=== PATIENT | male | born 1950 | race African-American/Black ===

== ENCOUNTER 2016-08-17 11:53 | Inpatient (IN) | payer MEDICARE ==
--- NOTE | ~2016-08-17 | DS ---
Unit #: [id number] #: [id number] Patient: SHERICE PLUNKETT [id number] [facility] [address] [place] [address] [id number] MR#: [id number] NAME: SHERICE PLUNKETT ROOM: [facility] Age: 66 Sex: M Admission Date: 08/17/2016 : 1950 Discharge Date: 08/21/2016 Attending Physician: Kassidy Schulte M.D. Primary Care Physician: Michelle Patients Family DISCHARGE SUMMARY IDENTIFYING DATA Mr. Plunkett is a 66-year-old male, who is a resident of [place], [place], and was self-referred to the hospital. DISCHARGE DIAGNOSES Psychiatric: Opioid dependence, moderate, in acute withdrawals and opioid-induced mood disorder. Medical: Hypertension. Stressors: Moderate psychosocial stressors. HISTORY OF PRESENT ILLNESS Please see initial psychiatric evaluation for details. PAST PSYCHIATRIC HISTORY Please see initial psychiatric evaluation for details. PAST MEDICAL HISTORY Please see initial psychiatric evaluation for details. HOSPITAL COURSE The patient was [facility] and was oriented to the hospital environment. Routine p.r.n. medications were initiated and he was started back on his home medications and detox protocol was initiated and he was closely monitored. He was taking the medications regularly and was tolerating them fairly well and was able to show a decent and therapeutic response and was willing to continue treatment on an outpatient basis and as such, it was decided that he will be discharged home and will continue treatment on an outpatient basis. DISCHARGE MEDICATIONS Zestril 20 mg a day for hypertension and Tenormin 50 mg a day for hypertension. DISCHARGE CONDITION Stable. PROGNOSIS Fair. Dictated by... Kassidy Schulte M.D. Unit #: [id number] #: [id number] Patient: SHERICE PLUNKETT IAA/modl TD: 08/21/2016 15:12 JOB #: [id number] DISCHARGE SUMMARY X Kassidy Schulte MD X DISCHARGE SUMMARY
--- NOTE | ~2016-08-17 | PA ---
Unit #: [id number] #: [id number] Patient: SHERICE PLUNKETT [id number] [facility] [address] [place] [address] [id number] I MR#: [id number] NAME: SHERICE PLUNKETT ROOM: P180 Age: 66 Sex: M Admission Date: 08/17/2016 : 1950 Date of Assessment: 08/17/2016 Attending Physician: Kassidy Schulte M.D. Admitting Physician: Kassidy Schulte M.D. [facility] PSYCHIATRIC ASSESSMENT DATE OF SERVICE 08/17/2016. IDENTIFYING DATA Mr. Plunkett is a 66-year-old male, who is a resident of [place], [place], and was self-referred to the hospital on a voluntary basis. CHIEF COMPLAINT "I'm using heroin daily." HISTORY OF PRESENT ILLNESS Mr. Plunkett is a 66-year-old male with history of substance abuse, who presented to the hospital and stated that he is a daily heroin user and is currently using about 0.5 g a day and that he has been snorting the substance and he wants to maintain sobriety for himself and his and does report some depression, anxiety, and irritability, but denies any suicidal ideations, intent, or plan. SUBSTANCE ABUSE HISTORY The patient reports opioids, particularly heroin to be his drug of choice and has been using up to half a gram a day and denies any other drug abuse. PAST PSYCHIATRIC HISTORY The patient has had a history of [facility], and review of the medical records indicate that currently he is not active in any treatment program, is not seeing a psychiatrist, and is not taking any psychotropic medications. PAST MEDICAL HISTORY Hypertension. ALLERGIES Penicillin, sulfamethoxazole, and trimethoprim. PERSONAL AND SOCIAL HISTORY A 66-year-old male, who reports that he is and lives at home with his and has fairly decent social support system. MENTAL STATUS EXAMINATION An elderly male, who was casually dressed fair personal hygiene, appears to be in no acute distress or discomfort. He was awake and alert on interaction with intact orientation to time, place, and Unit #: [id number] #: [id number] Patient: SHERICE PLUNKETT person. His mood was anxious and depressed with a congruent affect. His speech was slow and restricted in content. His thought processes were disorganized with some looseness of associations and paranoid ideations. His insight and judgment remain significantly impaired. DIAGNOSTIC IMPRESSION Psychiatric: Opioid dependence, moderate, in acute withdrawals and opioid induced mood disorder. Medical: None. Stressors: Moderate psychosocial stressors. TREATMENT PLAN 1. The patient has presented with a history of substance abuse and mood disorder and has been decompensating and will need inpatient hospitalization for safety and stabilization. We will start him back on his home medications and we will adjust the medications and monitor response. 2. Supportive therapy was provided to the patient. 3. Safe, structured, and nourishing environment will be provided. ESTIMATED LENGTH OF STAY 5 to 7 days. ABILITY TO HELP SELF Limited. WILLINGNESS TO HELP SELF The patient appears to be willing to help self. STRENGTHS 1. Communicative. 2. Cooperative. PROBLEMS 1. Chronic dysphoric symptoms. 2. Poor social support system. DISCHARGE CRITERIA This will be contingent upon the patient's ability to go through detox without having any significant withdrawal symptoms as well as his ability to stay safe to himself, particularly after discharge from the hospital. Dictated by... Antoine Cline/ed TD: 08/18/2016 16:52 JOB #: [id number] Unit #: [id number] #: [id number] Patient: SHERICE PLUNKETT PSYCHIATRIC ASSESSMENT X Kassidy Schulte MD X PSYCHIATRIC ASSESSMENT
--- NOTE | ~2016-08-17 | PN ---
Unit #: [id number] #: [id number] Patient: SHERICE PLUNKETT [id number] [facility] [address] [place] [address] [id number] I MR#: [id number] NAME: SHERICE PLUNKETT ROOM: [facility] Age: 66 Sex: M Admission Date: 08/17/2016 : 1950 Attending Physician: Kassidy Schulte M.D. Admitting Physician: Kassidy Schulte M.D. Primary Care Physician: [facility] PROGRESS NOTES DATE 08/20/2016 DISCUSSION Mr. Plunkett is a 66-year-old male who was seen today and chart was reviewed and case was discussed with the staff. He has been anxious, withdrawn and rather seclusive to himself. Meanwhile, he has been compliant with the treatment recommendations and has been taking medications and tolerating them fairly well with no reported side effects. MENTAL STATUS EXAMINATION An elderly male who was casually dressed with fair personal hygiene and appears to be in no acute distress or discomfort. He was awake and alert with impaired attention and concentration. His mood was anxious with congruent affect. He denies any suicidal or homicidal ideation. His insight and judgment remains significantly impaired. TREATMENT PLAN 1. Will continue on his current medications and treatment protocol. Will monitor his response to the medications and make further adjustments as needed. 2. Will continue to follow up. Dictated by... Kassidy Schulte M.D. IAA/melissa TD: 08/21/2016 10:50 JOB #: [id number] Unit #: [id number] #: [id number] Patient: SHERICE PLUNKETT [facility] PROGRESS NOTES X Kassidy Schulte MD X PROGRESS NOTE
--- NOTE | ~2016-08-17 | HP ---
Unit #: [id number] #: [id number] Patient: SHERICE SHER [id number] [place] [address] [id number] I MR#: [id number] NAME: SHERICE SHER ROOM: P180 Age: 66 Sex: M Admission Date: 08/17/2016 : 1950 Attending Physician: Kassidy Schulte M.D. Admitting Physician: Kassidy Schulte M.D. Primary Care Physician: Morenita Iniguez Family HISTORY AND PHYSICAL HISTORY OF PRESENT ILLNESS Sherice is a 66 year old admitted to [facility] because of his continued illicit substance abuse which include IV heroin. He has had other admissions to this facility for the same. PAST MEDICAL HISTORY 1. Long history of opioid abuse to include IV heroin 2. High blood pressure 3. Positive HIV, diagnosed 1998 PAST SURGICAL HISTORY Nothing significant ALLERGIES Sulfa, penicillin SOCIAL HISTORY Smokes one pack per day. Denies alcohol. Admits to a long history of opioid abuse to include IV heroin. FAMILY HISTORY Medically noncontributory. REVIEW OF SYSTEMS CONSTITUTIONAL: No fever or chills. HEENT: Denies any sore throat, ear pain or runny nose. CARDIOVASCULAR: Denies chest pain, irregular heart rhythm or palpitations. CHEST: Denies shortness of breath or cough. No hemoptysis. GASTROINTESTINAL: Denies nausea, vomiting, diarrhea or chronic constipation. ENDOCRINE: Denies history of increased thirst or urination. No recent significant weight loss or gain. GENITOURINARY: Denies dysuria, frequency, or hematuria. SKIN: Denies any rashes. HEMATOLOGIC: Denies history of increased bleeding or bruising. MUSCULOSKELETAL: Denies any hot, swollen joints. No generalized muscle pain. NEUROLOGIC: Denies problems with vision or speech. No frequent, severe headaches. No numbness, tingling or weakness in any extremities. Denies loss of bladder or bowel control. CURRENT MEDICATIONS Unit #: [id number] #: [id number] Patient: SHEIRCE SHER 1. Detox protocol 2. Cardura 2 mg daily 3. Tenormin 50 mg daily 4. Zestril 20 mg daily PHYSICAL EXAMINATION GENERAL: Alert, well-nourished, in no apparent distress. VITAL SIGNS: Blood pressure 138/88, heart rate 80, respirations 16, temperature 98.6. WEIGHT: 180 pounds. HEIGHT: 6'0". SKIN: Warm and dry without rash or lesion. HEENT: Normocephalic. TMs not viewed. Oral and nasal passages clear. Conjunctivae clear. Pupils equal, round and reactive to light and accommodation. Extraocular movements intact. NECK: Supple without lymphadenopathy or thyromegaly. HEART: Regular rate and rhythm without murmur. LUNGS: Clear. ABDOMEN: Soft, nontender. : Not done. EXTREMITIES: No evidence of cyanosis, clubbing or edema. Moves all extremities without focal deficit. NEUROLOGICAL: Grossly within normal limits. Cranial Nerves: II: Visual julien are intact. III, IV AND : Extraocular movements are intact. Pupils are equal, round and reactive to light. V: Facial sensation is grossly normal. VII: Facial movements and expression are normal. VIII: Auditory acuity grossly intact. IX, X: Uvula is midline. Phonation is normal. XI: Patient shrugs shoulders and turns head normally. XII: Tongue protrudes in the midline. Sensory and Motor Function: Sensory and motor sensation is grossly normal. Motor: moves all extremities well. Coordination: Gait is normal. Deep Tendon Reflexes: Intact. IMPRESSION Psychiatric admission RECOMMENDATIONS PSYCHIATRIC: Per psychiatrist. MEDICAL: I see no contraindications to participating in facility's activities. MEDICAL PROGNOSIS Good. MEDICAL CONDITION Stable. Dictated by... Moraima Mondragon P.A.-C. for Antoine Sweeney/brad Unit #: [id number] #: [id number] Patient: SHERICE SHER TD: 08/18/2016 02:17 JOB #: [id number] HISTORY AND PHYSICAL X Moraima Mondragon X HISTORY AND PHYSICAL
--- NOTE | ~2016-08-17 | PN ---
Unit #: [id number] #: [id number] Patient: SHERICE PLUNKETT [id number] [facility] [address] [place] [address] [id number] I MR#: [id number] NAME: SHERICE PLUNKETT ROOM: [facility] Age: 66 Sex: M Admission Date: 08/17/2016 : 1950 Attending Physician: Kassidy Schulte M.D. Admitting Physician: Kassidy Schulte M.D. Primary Care Physician: [facility] PROGRESS NOTES DATE August 18, 2016 DISCUSSION Mr. Plunkett is a 66-year-old male, with substance abuse and mood disorder, who was seen today and chart was reviewed and the case was discussed with the staff. He was seen to be anxious, withdrawn, and seclusive to himself but appears to be in distress and discomfort going through detox. Meanwhile, he has been cooperative with the treatment recommendations and he has been taking the medications and tolerating them fairly well with no reported side effects. MENTAL STATUS EXAMINATION An elderly male, who was casually dressed with fair personal hygiene and appears to be in no acute distress or discomfort. He was awake and alert with impaired attention and concentration. His mood is anxious with a congruent affect. He denies any suicidal or homicidal ideations. His insight and judgment remain slightly impaired. TREATMENT PLAN 1. We will continue him on his current treatment protocol, and will monitor his response to the medications, and make further adjustments as needed. 2. We will continue to followup. Dictated by... Antoine Cline/donna TD: 08/19/2016 10:29 JOB #: [id number] Unit #: [id number] #: [id number] Patient: SHERICE PLUNKETT PROGRESS NOTES X Kassidy Schulte MD PROGRESS NOTE
--- NOTE | ~2016-08-17 | PN ---
Unit #: [id number] #: [id number] Patient: SHERICE PLUNKETT [id number] [facility] [address] [place] [address] [id number] I MR#: [id number] NAME: SHERICE PLUNKETT ROOM: [facility] Age: 66 Sex: M Admission Date: 08/17/2016 : 1950 Attending Physician: Kassidy Schulte M.D. Admitting Physician: Kassidy Schulte M.D. Primary Care Physician: [facility] PROGRESS NOTES DATE 08/19/2016 DISCUSSION Mr. Plunkett is a 66-year-old male with substance abuse and mood disorder who was seen today and chart was reviewed and case was discussed with the staff. He has been anxious, restless and in some distress and discomfort as he is going through detox. Meanwhile, he has been compliant with the treatment recommendations and has been taking medications and tolerating them fairly well with no reported side effects. MENTAL STATUS EXAMINATION An elderly male who was casually dressed with fair personal hygiene and appears to be in no acute distress or discomfort. He was awake and alert with impaired attention and concentration. His mood was anxious with congruent affect. His speech is slow and restricted in content. His insight and judgement remains significantly impaired. TREATMENT PLAN 1. Will continue on his current medications and treatment protocol. Will monitor his response to the medications and make further adjustments as needed. 2. Will continue to follow up. Dictated by... Antoine Cline/tonny TD: 08/19/2016 23:19 JOB #: [id number] Unit #: [id number] #: [id number] Patient: SHERICE PLUNKETT PROGRESS NOTES X Kassdiy Schulte MD X PROGRESS NOTE
[2016-08-18 10:00] LABS: BASOPHIL% 0.6 % (0-2.5); EOSINOPHIL# 0.1 X10e3 (0-0.7); EOSINOPHIL% 1.1 % (0.0-7.0); HEMATOCRIT 43.3 % (38.0-50.0); LYMPHOCYTE# 2.7 X10e3 (1.0-3.5); LYMPHOCYTE% 56.3 % (17.0-45.0); MEAN CELL VOLUME 87.1 FL (83-96); MEAN CORPUSCULAR HEMOGLOBIN 28.2 PG (28-34); MEAN CORPUSCULAR HGB CONC 32.4 g/dL (30-36); MEAN PLATELET VOLUME 8.4 FL (6.5-11.5); MONOCYTE# 0.6 X10e3 (0-1.0); MONOCYTE% 11.7 % (3.0-12.0); NEUTROPHIL# 1.4 X10e3 (1.5-7.1); NEUTROPHIL% 30.3 % (40-75); PLATELET COUNT 200 X10e3 (140-420); RED BLOOD COUNT 4.97 X10e (3.90-5.60); RED CELL DISTRIBUTION WIDTH 13.5 % (11.0-15.5); WHITE BLOOD COUNT 4.7 X10e3 (4.0-10.5)
[2016-08-18 10:02] LABS: DIFF IND YES
[2016-08-18 10:03] LABS: URINE APPEARANCE CLEAR; URINE BILIRUBIN NEG (NEG); URINE BLOOD NEG (NEG); URINE COLOR YELLOW; URINE GLUCOSE NEG (NEG); URINE KETONE NEG (NEG); URINE LEUKOCYTE ESTERASE NEG (NEG); URINE NITRATE NEG (NEG); URINE PH 5.5 (5-8); URINE PROTEIN NEG (NEG)
[2016-08-18 10:20] LABS: THYROID STIMULATING HORMONE 0.16 uIU/ml (0.34-5.60)
[2016-08-18 10:25] LABS: ALBUMIN SERUM 3.5 g/dL (3.5-5.0); ALKALINE PHOSPHATASE 60 U/L (32-92); ALT (SGPT) 34 U/L (10-40); AST (SGOT) 64 U/L (10-42); BILIRUBIN,TOTAL 0.5 mg/dL (0.2-2.0); BLOOD UREA NITROGEN 12 mg/dL (9-23); CARBON DIOXIDE 30 mmol/L (22-31); CHLORIDE 102 mmol/L (100-111); GLOM FILT RATE Estimated ABOVE60 mL/min (>60); GLUCOSE FASTING 84 mg/dL (70-110); POTASSIUM 4.4 mmol/L (3.5-5.1); PROTEIN TOTAL SERUM 6.7 g/dL (6.0-8.3); SODIUM 139 mmol/L (135-145)
[2016-08-18 10:27] LABS: FREE THYROXIN (T4) 0.92 ng/dL (0.58-1.64)
[2016-08-18 10:33] LABS: AMPHETAMINE NEG (NEG); BARBITURATES NEG (NEG); BENZODIAZEPINES NEG (NEG); COCAINE NEG (NEG); MARIJUANA NEG (NEG); OPIATES POS (NEG); TRICYCLIC ANTIDEPRESSANTS NEG (NEG); U METHADONE POS (NEG)
[2016-08-18 11:06] LABS: ANISOCYTOSIS SL; PLATELET ESTIMATE NORMAL (NORMAL); RBC NORMAL YES
== END 2016-08-21 10:15 | disposition home or self-care (01) | DRG 897 ==
LOC: P1E 11:53
PROVIDERS: Psychiatry & Neurology Psychiatry
PROC: HZ2ZZZZ Detoxification Services for Substance Abuse Treatment (ICD-10-PCS; principal; 2016-08-17)
DX: F11.23 Opioid dependence with withdrawal (principal); F11.24 Opioid dependence with opioid-induced mood disorder; Z88.0 Allergy status to penicillin; Z88.2 Allergy status to sulfonamides; F17.200 Nicotine dependence, unspecified, uncomplicated; Z21 Asymptomatic human immunodeficiency virus [HIV] infection status
CPT/HCPCS: 80053; 80307; 81003; 84439; 84443; 85025; 86592

== ENCOUNTER 2016-10-09 18:34 | Inpatient (IN) | payer MEDICARE ==
--- NOTE | ~2016-10-09 | DS ---
Unit #: [id number] #: [id number] Patient: SHERICE PLUNKETT [id number] [facility] [address] [place] [address] [id number] I MR#: [id number] NAME: SHERICE PLUNKETT ROOM: [facility] Age: 66 Sex: M Admission Date: 10/09/2016 : 1950 Discharge Date: 10/14/2016 Attending Physician: Kassidy Schulte M.D. Primary Care Physician: [facility] DISCHARGE SUMMARY IDENTIFYING DATA Mr. Plunkett is a male with history of substance abuse and mood disorder, who is known to us from previous encounter, and was self-referred to the program. DISCHARGE DIAGNOSES Psychiatric: Opioid dependence, moderate and acute withdrawals; opioid-induced mood disorder. Medical: Hypertension and human immunodeficiency virus. Stressors: Moderate psychosocial stressors. HISTORY OF PRESENT ILLNESS Please see initial psychiatric evaluation for details. PAST PSYCHIATRIC HISTORY Please see initial psychiatric evaluation for details. PAST MEDICAL HISTORY Please see initial psychiatric evaluation for details. HOSPITAL COURSE The patient was [facility] and was oriented to the hospital environment. Routine p.r.n. medications were initiated, and he was started on the detox protocol and was closely monitored. He was taking the medications regularly and was tolerating them fairly well and was able to show a decent and therapeutic response and was willing to continue treatment on an outpatient basis and as such, it was decided that he will be discharged home and will continue treatment on an outpatient basis. DISCHARGE CONDITION Stable. PROGNOSIS Fair. Dictated by... Antoine Cline/ed TD: 11/01/2016 23:33 Unit #: [id number] #: [id number] Patient: SHERICE PLUNKETT JOB #: [id number] DISCHARGE SUMMARY Page 1 of 1 X Kassidy Schulte MD DISCHARGE SUMMARY
--- NOTE | ~2016-10-09 | HP ---
Unit #: [id number] #: [id number] Patient: SHERICE SHER [id number] [place] [address] [id number] I MR#: [id number] NAME: SHERICE SHER ROOM: P171 Age: 66 Sex: M Admission Date: 10/09/2016 : 1950 Attending Physician: Kassidy Schulte M.D. Admitting Physician: Kassidy Schulte M.D. [facility] HISTORY AND PHYSICAL HISTORY OF PRESENT ILLNESS Sherice is a 66 year old, admitted to [facility] because of his continued illicit drug use. He has had other admissions to this facility for the same. PAST MEDICAL HISTORY 1. Long history of illicit substance abuse to include snorting heroin. 2. High blood pressure. 3. Positive HIV, diagnosed in 1997, per patient's report. 4. Benign prostatic hypertrophy. PAST SURGICAL HISTORY Nothing significant. ALLERGIES Sulfa, penicillin. SOCIAL HISTORY He smokes one pack per day. He denies alcohol and admits to long history of opioid abuse to include IV heroin. FAMILY HISTORY Medically noncontributory. REVIEW OF SYSTEMS CONSTITUTIONAL: No fever or chills. HEENT: Denies any sore throat, ear pain or runny nose. CARDIOVASCULAR: Denies chest pain, irregular heart rhythm or palpitations. CHEST: Denies shortness of breath or cough. No hemoptysis. GASTROINTESTINAL: Denies nausea, vomiting, diarrhea or chronic constipation. ENDOCRINE: Denies history of increased thirst or urination. No recent significant weight loss or gain. GENITOURINARY: Denies dysuria, frequency, or hematuria. SKIN: Denies any rashes. HEMATOLOGIC: Denies history of increased bleeding or bruising. MUSCULOSKELETAL: Denies any hot, swollen joints. No generalized muscle pain. NEUROLOGIC: Denies problems with vision or speech. No frequent, severe headaches. No numbness, tingling or weakness in any extremities. Denies loss of bladder or bowel control. CURRENT MEDICATIONS Unit #: [id number] #: [id number] Patient: SHERICE SHER 1. Detox protocol 2. Nicotine patch 14 mg daily 3. Naproxen 500 mg b.i.d. 4. Tenormin 50 mg daily 5. Cardura 2 mg daily 6. Zestril 20 mg daily PHYSICAL EXAMINATION GENERAL: Alert, well-nourished, no apparent distress. VITAL SIGNS: Blood pressure 170/90, heart rate 80, respirations 16, and temperature 98.6. WEIGHT: 178 pounds. HEIGHT: 6 feet 0 inches. SKIN: Warm and dry without rash or lesion. HEENT: Normocephalic. TMs not viewed. Oral and nasal passages clear. Conjunctivae clear. PERRLA. EOMs intact. NECK: Supple without lymphadenopathy or thyromegaly. HEART: Regular rate and rhythm without murmur. LUNGS: Clear. ABDOMEN: Soft, nontender. : Not done. EXTREMITIES: No evidence of cyanosis, clubbing or edema. Moves all without focal deficit. NEUROLOGICAL: Grossly within normal limits. Cranial Nerves: II: Visual julien are intact. III, IV AND : Extraocular movements are intact. Pupils are equal, round and reactive to light. V: Facial sensation is grossly normal. VII: Facial movements and expression are normal. VIII: Auditory acuity grossly intact. IX, X: Uvula is midline. Phonation is normal. XI: Patient shrugs shoulders and turns head normally. XII: Tongue protrudes in the midline. Sensory and Motor Function: Sensory and motor sensation is grossly normal. Motor: moves all extremities well. Coordination: Gait is normal. Deep Tendon Reflexes: Intact. IMPRESSION Psychiatric admission. RECOMMENDATIONS Psychiatric, per psychiatrist. MEDICAL I see no contraindications to participating in facility's activities. MEDICAL PROGNOSIS Good. MEDICAL CONDITION Stable. Dictated by... Tirso DamonARory-Scottie. for Antoine Sweeney/donna Unit #: [id number] #: [id number] Patient: SHERICE SHER TD: 10/11/2016 11:59 JOB #: [id number] HISTORY AND PHYSICAL Page 1 of 1 X Moraima Mondragon HISTORY AND PHYSICAL
--- NOTE | ~2016-10-09 | PA ---
Unit #: [id number] #: [id number] Patient: [facility]UNKETT [id number] [facility] [address] [place] [address] [id number] I MR#: [id number] NAME: SHERICE PLUNKETT ROOM: P171 Age: 66 Sex: M Admission Date: 10/09/2016 : 1950 Date of Assessment: 10/10/2016 Attending Physician: Kassidy Schulte M.D. Admitting Physician: Kassidy Schulte M.D. [facility] PSYCHIATRIC ASSESSMENT IDENTIFYING DATA Mr. Plunkett is a 66-year-old single male, who is a resident of [place], [place], and was self-referred to the hospital accompanied by his . CHIEF COMPLAINT "I have been using heroin." HISTORY OF PRESENT ILLNESS Mr. Plunkett is a 66-year-old male, who was self-referred to the hospital reporting that he has been using heroin and that he snorts a gram of heroin a day and he did not maintain any sobriety after his last detox and reports his last use of heroin was 36 hours ago and was seen to be in significant withdrawals and does report an increasing depression, anxiety, irritability, restlessness, feelings of hopelessness and helplessness, but denies any suicidal ideations, intent, or plan. SUBSTANCE ABUSE HISTORY The patient reports history of opioid dependence and has been using opioids since he was 19 years old and currently has been using a gram of heroin a day by snorting it. He denies any intravenous drug abuse and also denies any other substance abuse beside opioids. PAST PSYCHIATRIC HISTORY The patient has had two prior inpatient [facility] and has been diagnosed and treated for mood disorder, though currently he is not active in any treatment program. Review of the medical records indicate that he is not taking any psychotropic medications. PAST MEDICAL HISTORY HIV, hepatitis C. ALLERGIES Penicillin and Bactrim. PERSONAL AND SOCIAL HISTORY A 66-year-old male, who reports that he is and lives at home with his and has fairly decent social support system. MENTAL STATUS EXAMINATION An elderly male, who was casually dressed with fair Unit #: [id number] #: [id number] Patient: SHERICE PLUNKETT personal hygiene, appears to be in no acute distress or discomfort. He was awake and alert on interaction with intact orientation to time, place, and person. His mood was anxious and depressed with a congruent affect. His speech was slow and restricted in content. He denies any suicidal or homicidal ideations, and also denies any auditory or visual hallucinations. His insight and judgment remain significantly impaired. DIAGNOSTIC IMPRESSION Psychiatric: Opioid dependence, moderate, in acute withdrawals; opioid-induced mood disorder. Medical: HIV, hepatitis C. Stressors: Moderate psychosocial stressors. TREATMENT PLAN 1. The patient has presented with history of substance abuse and mood disorder, and has been decompensating and will need inpatient hospitalization for detoxification, safety, and stabilization. We will start him on detox protocol. We will closely monitor. 2. Supportive therapy was provided to the patient. 3. Safe, structured, and nourishing environment will be provided. ESTIMATED LENGTH OF STAY 5 to 7 days. ABILITY TO HELP SELF Limited. WILLINGNESS TO HELP SELF The patient appears to be willing to help self. STRENGTHS 1. Communicative. 2. Cooperative. PROBLEMS 1. Chronic dysphoric symptoms. 2. Poor social support system. DISCHARGE CRITERIA This will be contingent upon the patient's ability to show resolution of his depression and anxiety and his ability to stay safe to himself and others, particularly after discharge from the hospital. Dictated by... Antoine Cline/ed TD: 10/10/2016 06:33 JOB #: [id number] Unit #: [id number] #: [id number] Patient: SHERICE PLUNKETT PSYCHIATRIC ASSESSMENT Page 1 of 1 X Kassidy Schulte MD X PSYCHIATRIC ASSESSMENT
--- NOTE | ~2016-10-09 | PN ---
Unit #: [id number] #: [id number] Patient: SHERICE PLUNKETT [id number] [facility] [address] [place] [address] [id number] MR#: [id number] NAME: SHERICE PLUNKETT ROOM: [facility] Age: 66 Sex: M Admission Date: 10/09/2016 : 1950 Attending Physician: Kassidy Schulte M.D. Admitting Physician: Kassidy Schulte M.D. Primary Care Physician: [facility] PROGRESS NOTES DATE October 12, 2016 DISCUSSION Mr. Plunkett is a 66-year-old male, who was seen today and chart was reviewed and the case was discussed with the staff. He has been anxious, withdrawn, and rather seclusive to himself. Meanwhile, he has been cooperative with the treatment recommendations and he has been taking the medications and tolerating them fairly well with no reported side effects. MENTAL STATUS EXAMINATION An elderly male, who was casually dressed with fair personal hygiene and appears to be in no acute distress or discomfort. He was awake and alert on interaction with intact orientation. His mood is anxious with a congruent affect. He denies any suicidal or homicidal ideations. His insight and judgment remain slightly impaired. TREATMENT PLAN 1. We will continue him on his current medications and treatment protocol, and will monitor his response to the medications, and make further adjustments as needed. 2. We will continue to followup. Dictated by... Antoine Cline/donna TD: 10/12/2016 07:55 JOB #: [id number] Unit #: [id number] #: [id number] Patient: SHERICE PLUNKETT PROGRESS NOTES Page 1 of 1 X aKssidy Schulte MD PROGRESS NOTE
--- NOTE | ~2016-10-09 | PN ---
Unit #: [id number] #: [id number] Patient: SHERICE PLUNKETT [id number] [facility] [address] [place] [address] [id number] MR#: [id number] NAME: SHERICE PLUNKETT ROOM: [facility] Age: 66 Sex: M Admission Date: 10/09/2016 : 1950 Attending Physician: Kassidy Schulte M.D. Admitting Physician: Kassidy Schulte M.D. Primary Care Physician: [facility] PROGRESS NOTES DATE October 13, 2016 DISCUSSION Mr. Plunkett is a 66-year-old male, who was seen today and chart was reviewed and the case was discussed with the staff. He has been anxious, withdrawn, and rather seclusive to himself. Meanwhile, he has been cooperative with the treatment recommendations and he has been taking the medications and tolerating them fairly well with no reported side effects. MENTAL STATUS EXAMINATION An elderly male, who was casually dressed with fair personal hygiene and appears to be in no acute distress or discomfort. He was awake and alert on interaction with intact orientation. His mood was anxious with a congruent affect. He denies any suicidal or homicidal ideations, and also denies any auditory or visual hallucinations. His insight and judgment remain slightly impaired. TREATMENT PLAN 1. We will continue him on his current medications and treatment protocol, and will monitor his response to the medications, and make further adjustments as needed. 2. We will continue to followup. Dictated by... Antoine Cline/donna TD: 10/13/2016 08:59 JOB #: [id number] Unit #: [id number] #: [id number] Patient: SHERICE PLUNKETT PROGRESS NOTES Page 1 of 1 X Kassidy Schulte MD X PROGRESS NOTE
--- NOTE | ~2016-10-09 | PN ---
Unit #: [id number] #: [id number] Patient: SHERICE PLUNKETT [id number] [facility] [address] [place] [address] [id number] MR#: [id number] NAME: SHERICE PLUNKETT ROOM: [facility] Age: 66 Sex: M Admission Date: 10/09/2016 : 1950 Attending Physician: Kassidy Schulte M.D. Admitting Physician: Kassidy Schulte M.D. Primary Care Physician: [facility] PROGRESS NOTES DATE 10/11/2016 DISCUSSION Mr. Plunkett is a 66-year-old -Maldivian male who was seen today, chart was reviewed and case was discussed with the staff. He has been anxious and withdrawn, depressed and rather seclusive to himself. Meanwhile he has been cooperative with treatment recommendation and has been taking medications and tolerating them fairly well. He has been going to therapy groups. MENTAL STATUS EXAMINATION Elderly -Maldivian male was casually dressed with fair personal hygiene and appears to be in no acute distress or discomfort. He was awake and alert on interaction with intact orientation. Mood was anxious and depressed with a congruent affect. Speech is slow and goal directed. He denies any suicidal or homicidal ideation and also denies any auditory or visual hallucinations. His insight and judgment remains slightly impaired. TREATMENT PLAN Will continue on current medications and treatment protocol. We will monitor response and make further adjustments as needed. We will continue to follow up. Dictated by... Antoine Cline/carmine TD: 10/11/2016 12:57 JOB #: [id number] Unit #: [id number] #: [id number] Patient: SHERICE PLUNKETT PROGRESS NOTES Page 1 of 1 X Kassidy Schulte MD PROGRESS NOTE
[2016-10-12 09:43] LABS: URINE APPEARANCE CLEAR; URINE BILIRUBIN NEG (NEG); URINE BLOOD NEG (NEG); URINE COLOR DK YELLOW; URINE GLUCOSE NEG (NEG); URINE KETONE NEG (NEG); URINE LEUKOCYTE ESTERASE NEG (NEG); URINE NITRATE NEG (NEG); URINE PROTEIN NEG (NEG); URINE SPECIFIC GRAVITY 1.021 (1.003-1.035)
[2016-10-12 09:50] LABS: CULTURE INDICATED? NO
[2016-10-12 10:37] LABS: AMPHETAMINE NEG (NEG); BARBITURATES NEG (NEG); BENZODIAZEPINES NEG (NEG); COCAINE NEG (NEG); MARIJUANA NEG (NEG); OPIATES POS (NEG); TRICYCLIC ANTIDEPRESSANTS NEG (NEG); U METHADONE NEG (NEG)
== END 2016-10-14 09:50 | disposition home or self-care (01) | DRG 896 ==
LOC: P1E 18:34
PROVIDERS: Psychiatry & Neurology Psychiatry
PROC: HZ2ZZZZ Detoxification Services for Substance Abuse Treatment (ICD-10-PCS; principal; 2016-10-09)
DX: F11.23 Opioid dependence with withdrawal (principal); B20 Human immunodeficiency virus [HIV] disease; F11.24 Opioid dependence with opioid-induced mood disorder; B19.20 Unspecified viral hepatitis C without hepatic coma; Z88.0 Allergy status to penicillin; Z88.1 Allergy status to other antibiotic agents; Z88.2 Allergy status to sulfonamides; F17.210 Nicotine dependence, cigarettes, uncomplicated
CPT/HCPCS: 80307; 81003